=== PATIENT | male | born 1970 | race Caucasian/White ===

== ENCOUNTER 2016-10-24 10:17 | Emergency (ER) | payer OTHER ==
[2016-10-24 10:52] VITALS: RESP 18
--- NOTE | 2016-10-24 11:37 | ED ---
ENT HPI - General Chief complaint: ENT Stated complaint: rt ear bleeding inside Time Seen by Provider: 10/24/16 10:41 Source: patient Mode of arrival: ambulatory Limitations: no limitations - History of Present Illness Initial comments: Patient is a 45-year-old male who presents for evaluation for right ear bleeding. Past medical history as below. Patient stated that this bleeding started overnight. He woke up with bleeding from his right ear. He has an extensive history of multiple ear surgeries in the past. He said for ear surgeries. His last revision was in 2006. He has no pain to the ear. He states that he did not put anything in his ear. There is no trauma to the ear. He is on Bernard into his ear continues to bleed. He denies any dizziness or lightheadedness. He's never had situations like this before in the past. He believes this also is related to starting Singulair recently for some congestion. Incidentally, the patient mentioned that he's been having bright red blood per rectum on and off over the past week. He denies any abdominal pain. He has never had a colonoscopy and states he is in the process of scheduling 1. His GI physician is Dr. Reich ([facility]) and his ENT is in [facility]. He is on lifetime xarelto for RLE DVT. He currently denies fever, chills, headache, sore throat, chest pain, shortness breath, cough, nausea, vomiting, diarrhea, pain or burning with urination. - Related Data Home Medications Medication Instructions Recorded Confirmed Aspirin 81 mg PO DAILY 10/24/16 10/24/16 Cetirizine HCl [Zyrtec] 10 mg PO HS 10/24/16 10/24/16 Docusate [Colace] 100 mg PO BID PRN 10/24/16 10/24/16 Losartan/Hydrochlorothiazide 1 tab PO DAILY 10/24/16 10/24/16 [Losartan-Hctz 100-12.5 mg Tab] Multivitamins, Thera [Multivitamin 1 tab PO DAILY 10/24/16 10/24/16 (formulary)] Omeprazole [PriLOSEC] 40 mg PO DAILY 10/24/16 10/24/16 Rivaroxaban [Xarelto] 20 mg PO HS 10/24/16 10/24/16 Simvastatin [Zocor] 20 mg PO HS 10/24/16 10/24/16 metFORMIN HCL [Metformin HCl] 500 mg PO BID 10/24/16 10/24/16 Previous Rx's Medication Instructions Recorded Ciprofloxacin Ophth Soln [Cipro 1 drops RIGHT EYE TID #1 bottle 10/24/16 Ophth Soln] Allergies Allergy/AdvReac Type Severity Reaction Status Date / Time No Known Allergies Allergy Unverified 10/24/16 10:47 Review of Systems ROS Statement: Those systems with pertinent positive or pertinent negative responses have been documented in the HPI. ROS Other: All systems not noted in ROS Statement are negative. Past Medical History Past Medical History: Diabetes Mellitus, Deep Vein Thrombosis (DVT) History of Any Multi-Drug Resistant Organisms: None Reported Past Surgical History: Ear Surgery Additional Past Surgical History / Comment(s): 4 ears surg, tympanic membrane grafting x2 Past Psychological History: No Psychological Hx Reported Smoking Status: Never smoker Past Alcohol Use History: Occasional Past Drug Use History: None Reported General Exam Limitations: no limitations General appearance: alert, in no apparent distress Head exam: Present: atraumatic, normocephalic, normal inspection Eye exam: Present: normal appearance, PERRL, EOMI, other (No pale conjunctiva). Absent: scleral icterus, conjunctival injection, periorbital swelling ENT exam: Present: normal exam, mucous membranes moist, other (Right tympanic membrane cannot be fully visualized secondary to clot and minimal amount of blood oozing. Left tympanic membrane appears clear.) Neck exam: Present: normal inspection. Absent: tenderness, meningismus, lymphadenopathy Respiratory exam: Present: normal lung sounds bilaterally. Absent: respiratory distress, wheezes, rales, rhonchi, stridor Cardiovascular Exam: Present: regular rate, normal rhythm, normal heart sounds, other (Brisk cap refill <3s). Absent: systolic murmur, diastolic murmur, rubs, gallop, clicks GI/Abdominal exam: Present: soft, normal bowel sounds, other (Abdomen is soft and nontender. No palpable liver margin. No peritoneal signs.). Absent: distended, tenderness, guarding, rebound, rigid Rectal exam: Present: other (No obvious external hemorrhoids. No bright red blood per rectum.) Extremities exam: Present: normal inspection, full ROM, normal capillary refill. Absent: tenderness, pedal edema, joint swelling, calf tenderness Back exam: Present: normal inspection Neurological exam: Present: alert, oriented X3, CN II-XII intact Psychiatric exam: Present: normal affect, normal mood Skin exam: Present: warm, dry, intact, normal color. Absent: rash Course Vital Signs 10/24/16 10:32 Temperature 98.1 F Pulse Rate 73 Respiratory 18 Rate Blood Pressure 147/93 O2 Sat by Pulse 98 Oximetry Medical Decision Making - Medical Decision Making 1115: Patient is a 45-year-old male presenting from bleeding from the right ear since this morning and intermittent bright red blood per rectum over the past week. He is on anticoagulation. Cannot fully visualize the right TM secondary to blood clot. Did not want to disrupt the clot as it does not appear to be substantially bleeding at this time. Rectal exam was unremarkable. Patient had a bowel movement in the emergency department and states there is no bright red blood in his stool. We'll order basic labs with coags and type and screen with a fecal occult. 1215: Review laboratory studies. Hemoglobin 17. Fecal occult negative. I spoke with the patient's primary care physician. She is making efforts for him to follow-up with an ear nose and throat physician and GI physician. She requested consults from RNs as she does not believe he'll be able to be evaluated today. Page 2 ENT. - Discussed the case with Dr. Brown -recommended Cipro drops and appendectomy for the ear continues to bleed. Recommending cotton ball over the year and protected. No swimming. No emergent. Nothing in the year. Reevaluated the patient and is not currently bleeding. Do not want to disrupt the clot at this time. Discussed this with the patient. He discussed this with his primary care physician who is actively trying to set up a follow-up appointment for him for next week. We'll discharge home with Cipro drops for his right ear. Discussed signs and symptoms on when to return to the emergency department for further evaluation. He is comfortable with discharge home and will follow-up next week. - Lab Data Result diagrams: 10/24/16 11:26 10/24/16 11:26 Lab Results 10/24/16 10/24/16 10/24/16 Range/Units 11:26 11:26 11:26 WBC 9.8 (3.8-10.6) k/uL RBC 5.28 (4.30-5.90) m/uL Hgb 17.0 (13.0-17.5) gm/dL Hct 47.4 (39.0-53.0) % MCV 89.9 (80.0-100.0) fL MCH 32.3 (25.0-35.0) pg MCHC 35.9 (31.0-37.0) g/dL RDW 12.5 (11.5-15.5) % Plt Count 229 (150-450) k/uL Neutrophils % 74 % Lymphocytes % 18 % Monocytes % 5 % Eosinophils % 1 % Basophils % 1 % Neutrophils # 7.3 (1.3-7.7) k/uL Lymphocytes # 1.8 (1.0-4.8) k/uL Monocytes # 0.4 (0-1.0) k/uL Eosinophils # 0.1 (0-0.7) k/uL Basophils # 0.1 (0-0.2) k/uL PT (9.0-12.0) sec INR (<1.1) APTT (22.0-30.0) sec Sodium 141 (137-145) mmol/L Potassium 4.4 (3.5-5.1) mmol/L Chloride 102 (98-107) mmol/L Carbon Dioxide 29 (22-30) mmol/L Anion Gap 10 mmol/L BUN 15 (9-20) mg/dL Creatinine 0.80 (0.66-1.25) mg/dL Est GFR (MDRD) Af Amer >60 (>60 ml/min/1.73 sqM) Est GFR (MDRD) Non-Af >60 (>60 ml/min/1.73 sqM) Glucose 106 H (74-99) mg/dL Calcium 9.2 (8.4-10.2) mg/dL Stool Occult Blood Negative (Negative) Blood Type Blood Type Confirm Blood Type Recheck Antibody Screen Spec Expiration Date 10/24/16 10/24/16 10/24/16 Range/Units 11:26 11:30 11:50 WBC (3.8-10.6) k/uL RBC (4.30-5.90) m/uL Hgb (13.0-17.5) gm/dL Hct (39.0-53.0) % MCV (80.0-100.0) fL MCH (25.0-35.0) pg MCHC (31.0-37.0) g/dL RDW (11.5-15.5) % Plt Count (150-450) k/uL Neutrophils % % Lymphocytes % % Monocytes % % Eosinophils % % Basophils % % Neutrophils # (1.3-7.7) k/uL Lymphocytes # (1.0-4.8) k/uL Monocytes # (0-1.0) k/uL Eosinophils # (0-0.7) k/uL Basophils # (0-0.2) k/uL PT 12.2 H (9.0-12.0) sec INR 1.2 (<1.1) APTT 29.4 (22.0-30.0) sec Sodium (137-145) mmol/L Potassium (3.5-5.1) mmol/L Chloride (98-107) mmol/L Carbon Dioxide (22-30) mmol/L Anion Gap mmol/L BUN (9-20) mg/dL Creatinine (0.66-1.25) mg/dL Est GFR (MDRD) Af Amer (>60 ml/min/1.73 sqM) Est GFR (MDRD) Non-Af (>60 ml/min/1.73 sqM) Glucose (74-99) mg/dL Calcium (8.4-10.2) mg/dL Stool Occult Blood (Negative) Blood Type A Positive Blood Type Confirm A Positive Blood Type Recheck CABO Indicated Antibody Screen NEGATIVE Spec Expiration Date 10/27/2016 - 2325 Disposition Clinical Impression: Bleeding from right ear Disposition: HOME SELF-CARE Condition: Fair Instructions: Earache (ED) Prescriptions: Ciprofloxacin Ophth Soln [Cipro Ophth Soln] 1 drops RIGHT EYE TID #1 bottle Referrals: Nonstaff,Physician [Primary Care Provider] - 1-2 days
[2016-10-24 11:48] LABS: Basophils # (A) 0.1 k/uL (0-0.2); Basophils % (A) 1 %; CH 31.5; CHCM 35.2; Eosinophils # (A) 0.1 k/uL (0-0.7); Eosinophils % (A) 1 %; HCT 47.4 % (39.0-53.0); HDW 2.54; Luc # (Auto) 0.16; Luc % (Auto) 2; Lymphocytes # (A) 1.8 k/uL (1.0-4.8); Lymphocytes % (A) 18 %; MCH 32.3 pg (25.0-35.0); MCHC 35.9 g/dL (31.0-37.0); MCV 89.9 fL (80.0-100.0); Monocytes # (A) 0.4 k/uL (0-1.0); Monocytes % (A) 5 %; Neutrophils # (A) 7.3 k/uL (1.3-7.7); Neutrophils % (A) 74 %; RBC 5.28 m/uL (4.30-5.90); RDW 12.5 % (11.5-15.5); WBC 9.8 k/uL (3.8-10.6); WBC (Perox) 10.11
[2016-10-24 11:53] LABS: Anion Gap 10 mmol/L; Blood Urea Nitrogen 15 mg/dL (9-20); Calcium 9.2 mg/dL (8.4-10.2); Carbon Dioxide 29 mmol/L (22-30); Chloride 102 mmol/L (98-107); Glucose 106 mg/dL (74-99); Non-African American GFR(MDRD) >60 (>60 ml/min/1.73 sqM); Potassium 4.4 mmol/L (3.5-5.1); Sodium 141 mmol/L (137-145)
[2016-10-24 12:10] LABS: INR 1.2 (<1.1); Partial Thromboplastin Time 29.4 sec (22.0-30.0); Prothrombin Time 12.2 sec (9.0-12.0)
[2016-10-24 13:51] VITALS: BP 134/85; PULSE 70; TEMP 97
== END 2016-10-24 13:51 | disposition home or self-care (01) ==
LOC: EC 10:17
DX: H92.21 Otorrhagia, right ear (principal); E11.9 Type 2 diabetes mellitus without complications; Z86.718 Personal history of other venous thrombosis and embolism; Z79.84 Long term (current) use of oral hypoglycemic drugs; Z79.01 Long term (current) use of anticoagulants; Z79.82 Long term (current) use of aspirin; Z79.899 Other long term (current) drug therapy
CPT/HCPCS: 36415; 80048; 82272; 85025; 85610; 85730; 86850; 86900; 86901; 99283